=== PATIENT | female | born 1940 | race Caucasian/White ===

== ENCOUNTER → 2017-02-09 11:45 | Outpatient (CLI) | payer MEDICARE ==
[2017-02-09 12:35] LABS: BASOPHILS 0.4 % (0-2); EOSINOPHILS 2.2 % (0-7); HEMATOCRIT 39.3 % (36.0-48.0); HEMOGLOBIN 12.7 g/dL (12-16); IMMATURE GRANULOCYTES 0.1 % (0-5); MCH 29.1 pg (26.0-34.0); MCHC 32.3 g/dL (31.0-37.0); MCV 89.9 fL (80.0-100.0); MEAN PLATELET VOLUME 9.4 fL (7.4-10.4); MONOCYTES 6.8 % (2-11); NEUTROPHILS 63.5 % (40-80); PLATELET COUNT 167 10x3/uL (130-400); RBC 4.37 10x6/uL (4.00-5.40); RDW 14.7 % (11.5-14.5); WBC 7.4 10x3/uL (4.8-10.8)
[2017-02-10 09:18] LABS: IMMUNOGLOBULIN E 25 IU/mL (0-100)
== END | disposition home or self-care (01) ==
LOC: D.RT 01-25 08:00 → D.LAB 01-25 09:00 → D.RAD 01-25 09:30 → D.RT 11:45
PROVIDERS: Internal Medicine Pulmonary Disease
DX: J45.991 Cough variant asthma (principal)